=== PATIENT | male | born 1945 | race Caucasian/White ===

== ENCOUNTER 2017-11-25 22:33 | Emergency (ER) | payer MEDICARE ==
[~2017-11-25] VITALS: Ht 193 cm; Wt 81.6 kg
[~2017-11-25 22:33] MED LIST: AMIODARONE HCL200 MG; AMLODIPINE BESYL5 MG PO; ASPIR-LOW81 MG; ATORVASTATIN CA20 MG PO; BENZONATATE100 MG PO; DICYCLOMINE HCL10 MG; FINASTERIDE5 MG PO; LEVAQUIN500 MG PO; LEVOTHYROXINE112 MCG PO; LISINOPRIL5 MG; MAGNESIUM400 MG; MIRTAZAPINE30 MG; NORCO 5-325 TA1 EACH PO; NOVOLIN 70100 UNITS/; ONDANSETRON HCL4 MG; TAMSULOSIN HCL0.4 MG; VITAMIN D400 UNIT PO; [UNRECOGNIZED DRUG - REMARK]
[2017-11-25] MEDS ORDERED: LIDOCAINE JELLY 2% 10ML URO-JET ONE (23:04)
[2017-11-25] MEDS ORDERED: LIDOCAINE JELLY 2% 10ML URO-JET TOP ONE (23:15)
== END 2017-11-25 23:32 | disposition home or self-care (01) ==
LOC: ER 22:33
DX: R33.9 Retention of urine, unspecified (principal); N40.1 Benign prostatic hyperplasia with lower urinary tract symptoms; I10 Essential (primary) hypertension; E11.9 Type 2 diabetes mellitus without complications; I50.9 Heart failure, unspecified; I73.9 Peripheral vascular disease, unspecified; K91.2 Postsurgical malabsorption, not elsewhere classified
CPT/HCPCS: 99282

== ENCOUNTER 2018-01-23 20:27 | Emergency (ER) | payer MEDICARE ==
[~2018-01-23] VITALS: Ht 193 cm; Wt 81.6 kg
[2018-01-23 21:10] LABS: BASOPHILS % 0.4 % (0.0-1.0); EOSINOPHILS # (AUTO) 0.1 (0.0-0.4); EOSINOPHILS % 1.7 % (0.0-6.0); HEMATOCRIT 34.9 % (38.2-49.6); HEMOGLOBIN 10.7 g/dL (14.0-18.0); LYMPHOCYTES # (AUTO) 0.6 (1.0-3.2); LYMPHOCYTES % 11.4 % (18.0-39.1); MEAN CORPUSCULAR HGB CONC 30.7 g/dL (31-35); MEAN CORPUSCULAR VOLUME 97.8 fL (81-99); MONOCYTES # (AUTO) 0.2 (0.2-0.8); MONOCYTES % 4.3 % (4.4-11.3); NEUTROPHILS # (AUTO) 4.2 (2.1-6.9); PLATELET COUNT 199 x10e3/uL (140-360); RED BLOOD COUNT 3.57 x10e6/uL (4.3-5.7); RED CELL DISTRIBUTION WIDTH 15.3 % (11.7-14.4)
[2018-01-23] MEDS ORDERED: BACITRACIN ZINC 0.9GM TP ONE (21:30)
[2018-01-23 21:34] LABS: ALBUMIN 2.9 g/dL (3.5-5.0); ALBUMIN/GLOBULIN RATIO 0.8 (0.8-2.0); ANION GAP 14.6 mmol/L (8-16); CALCIUM 9.1 mg/dL (8.4-10.2); CREATININE, SERUM 1.38 mg/dL (0.72-1.25); POTASSIUM 4.6 mmol/L (3.5-5.1)
[2018-01-23 21:41] LABS: CREATINE KINASE MB 2.5 ng/mL (0-5.0)
--- NOTE | 2018-01-23 21:48 | Diagnostic Imaging Report ---
EXAM: CHEST SINGLE (PORTABLE), AP 1 view INDICATION: Fall this morning COMPARISON: AP view the chest February 21, 2016 FINDINGS: LINES/TUBES: None LUNGS: Bibasilar atelectasis. PLEURA: Small bilateral pleural effusions. HEART AND MEDIASTINUM: Heart is within normal size limits for technique. Stable median sternotomy wires. BONES AND SOFT TISSUES: Degenerative changes of the bilateral shoulders. IMPRESSION: Small bilateral pleural effusions with adjacent atelectasis. Signed by: Dr. Cheryl Davis M.D. on 01/23/2018 9:45 PM
[2018-01-23] MEDS ORDERED: HYDROCODONE/APAP 7.5MG-325MG 1 EA TAB PO ONE (22:00)
[2018-01-23 23:04] VITALS: BP 139/60
== END 2018-01-23 23:45 | disposition home or self-care (01) ==
LOC: ER 20:27
DX: R06.09 Other forms of dyspnea (principal); J90 Pleural effusion, not elsewhere classified
CPT/HCPCS: 36415; 71045; 80053; 82550; 82553; 83880; 84484; 85025; 93005; 99284

== ENCOUNTER 2018-02-07 06:15 | Inpatient (IN) | payer MEDICARE ==
[~2018-02-07] VITALS: Ht 193 cm; Wt 81.6 kg
[2018-02-07] MEDS ORDERED: IPRATROPIUM BROMIDE 0.02% 2.5 ML NEB NEB STA (06:22)
[2018-02-07] MEDS ORDERED: ALBUTEROL SULF 0.083% NEB SOLN 3 ML NEB NEB STA (06:22)
[2018-02-07] MEDS ORDERED: FAMOTIDINE 20 MG/2 ML VIAL IV ONE (06:30)
[2018-02-07] MEDS ORDERED: NITROGLYCERIN 2% OINT 1 GM PKT TOP ONE (06:30)
[2018-02-07] MEDS ORDERED: SODIUM CHLORIDE FLUSH 10 ML SYR INJ PRN ×2 (06:30→08:15)
[2018-02-07] MEDS ORDERED: FUROSEMIDE INJ 10 MG/ML 4 ML VIAL IV ONE (06:30)
[2018-02-07] MEDS ORDERED: ASPIRIN 81 MG CHEW TAB PO ONE ×2 (06:30→08:15)
[2018-02-07 07:00] LABS: BASOPHILS % 0.1 % (0.0-1.0); EOSINOPHILS % 0.4 % (0.0-6.0); HEMATOCRIT 30.7 % (38.2-49.6); LYMPHOCYTES # (AUTO) 0.6 (1.0-3.2); LYMPHOCYTES % 7.7 % (18.0-39.1); MEAN CORPUSCULAR HEMOGLOBIN 29.2 pg (28-32); MEAN CORPUSCULAR HGB CONC 29.3 g/dL (31-35); MEAN CORPUSCULAR VOLUME 99.7 fL (81-99); MONOCYTES # (AUTO) 0.2 (0.2-0.8); MONOCYTES % 2.4 % (4.4-11.3); NEUTROPHILS # (AUTO) 6.7 (2.1-6.9); NEUTROPHILS % 88.9 % (38.7-80.0); PLATELET COUNT 182 x10e3/uL (140-360); RED BLOOD COUNT 3.08 x10e6/uL (4.3-5.7); RED CELL DISTRIBUTION WIDTH 15.5 % (11.7-14.4)
[2018-02-07 07:19] LABS: ALBUMIN 2.5 g/dL (3.5-5.0); ALBUMIN/GLOBULIN RATIO 0.8 (0.8-2.0); ANION GAP 12.3 mmol/L (8-16); CALCIUM 8.4 mg/dL (8.4-10.2); CREATININE, SERUM 1.55 mg/dL (0.72-1.25); POTASSIUM 5.3 mmol/L (3.5-5.1)
--- NOTE | 2018-02-07 07:19 | Diagnostic Imaging Report ---
PROCEDURE: A single AP view of the chest. COMPARISON: Chest radiograph 01/23/18. INDICATIONS: CHEST PAIN; SOB FINDINGS: Lines/tubes: None. Lungs: Low lung volumes. Interval development of bilateral perihilar and interstitial opacities. Increasing patchy opacities at the lung bases. Pleura: Increasing moderate right and small left pleural effusions. No evidence of pneumothorax. Heart and mediastinum: The cardiomediastinal silhouette is unremarkable. Atherosclerotic aortic calcifications. Bones: No acute bony abnormality. Status post median sternotomy. IMPRESSION: Interval development of moderate pulmonary edema with increasing moderate right and small left pleural effusions. Patchy opacities at the lung bases, likely atelectasis. Superimposed pneumonia is possible in the appropriate clinical setting. Dictated by: LENIN GURROLA M.D. on 02/07/2018 at 7:25 Electronically approved by: LENIN GURROLA M.D. on 02/07/2018 at 7:25
[2018-02-07] MEDS ORDERED: AZITHROMYCIN 500MG/SOD CHL 0.9% 250ML BAG IV SCH (08:15)
[2018-02-07] MEDS ORDERED: D5.45%NS/KCL 20MEQ 1,000 ML IV ONE (08:15)
[2018-02-07] MEDS ORDERED: CEFTRIAXONE SOD 1 GM VIAL IV SCH (08:15)
[2018-02-07] MEDS ORDERED: ALBUTEROL SULF 0.083% NEB SOLN 3 ML NEB NEB SCH (08:15)
[2018-02-07 08:18] LABS: ABG HCO3 34 mmol/L (23-28); ABG PCO2 69 mmHg (41-51); ABG PO2 60 mmHg (80-105)
[2018-02-07] MEDS ORDERED: SODIUM CHLORIDE 0.9% 1000ML 1,000 ML ONE (08:54)
[2018-02-07] MEDS ORDERED: AZITHROMYCIN 500MG/NS 250 ML 250 ML IV SCH (09:00)
[2018-02-07] MEDS ORDERED: SODIUM CHLORIDE 0.9% 1000ML 1,000 ML IV SCH (09:00)
[2018-02-07 09:28] LABS: ABG HCO3 37 mmol/L (23-28); ABG PCO2 74 mmHg (41-51); ABG PO2 52 mmHg (80-105)
--- NOTE | 2018-02-07 10:05 | History and Physical ---
PRIMARY CARE PHYSICIAN: At the [place] CHIEF COMPLAINT: Shortness of breath. HISTORY OF PRESENT ILLNESS: This is a 72-year-old man with a history of peripheral vascular disease and coronary artery disease, as well as severe COPD, on oxygen at home, now developing shortness of breath. Brought to the hospital by his . The patient was found to have illness at the requiring BiPAP support and antibiotics. However, family has decided to withdrawal care honoring the patient's wishes, and want to proceed with Hospice care and make the patient DNR. PAST MEDICAL HISTORY: Urinary tract infection, major depression, peripheral arterial disease, acute colitis, diabetes mellitus, severe COPD, on nasal cannula oxygen at home, chronic atrial fibrillation, hypertension, hyperlipidemia, BPH, hypothyroidism, coronary artery disease, status post coronary artery bypass grafting times 4 in 2002, cigarette use. PAST SURGICAL HISTORY: Coronary artery bypass graft. ALLERGIES: PER ELECTRONIC MEDICAL RECORD. FAMILY HISTORY/SOCIAL HISTORY: Patient is . He has no children of his own. Occasional alcohol. A quarter pack of cigarettes per day. MEDICATIONS: Per electronic medical record. REVIEW OF SYSTEMS: Unobtainable. PHYSICAL EXAMINATION VITAL SIGNS: Have been reviewed. GENERAL: A tired-appearing man resting in bed. HEENT: He has a BiPAP mask in place. Eyes closed. Pupils are 2+. CARDIOVASCULAR: Normal S1 and S2. LUNGS: He has reduced breath sounds throughout. Near absent breath sounds. ABDOMEN: Soft, nontender and nondistended. EXTREMITIES: He has a left BKA well-healed. He has right TMA with ulcer, stage 2 on the heel. SKIN: Dry. PSYCHIATRIC: Unable to assess. NEUROLOGIC: He is not interactive. LABS: Reviewed. MEDICATIONS: Reviewed. ASSESSMENT: This is a 72-year-old man with: 1. Acute respiratory failure. 2. Acute exacerbation of chronic obstructive pulmonary disease. 3. Bilateral pleural effusion and pulmonary edema. 4. Diabetes mellitus. 5. Microcytic anemia, moderate. 6. Hyperkalemia. 7. Acute kidney injury versus chronic kidney disease. 8. Elevated brain natriuretic peptide, likely acute exacerbation of congestive heart failure, type unknown. 9. Prophylaxis: No sequential compression devices due to Hospice status. PLAN 1. has requested no antibiotics. Antibiotics will hence be discontinued at this time. Will discontinue IV fluids. He has pulmonary edema and likely CHF exacerbation. 2. Will stop the BiPAP per the 's wishes, and will put him on nasal cannula oxygen. 3. Will monitor closely. Restart his home medications and consult Hospice services. Possible discharge later today. 4. Code status DNI. Job#: [id number] RI
[2018-02-07 10:35] VITALS: BP 122/63
[2018-02-07] MEDS: ALBUTEROL SULF 0.083% NEB SOLN 3 ML NEB NEB SCH ×2 (11:00→14:47)
[2018-02-07] MEDS ORDERED: IPRATROPIUM BROMIDE 0.02% 2.5 ML NEB NEB SCH ×2 (12:00→13:00)
[2018-02-07] MEDS: HYDROMORPHONE 1MG/1ML INJ IV PRN ×3 (13:35→21:11)
[2018-02-07] MEDS: BENZONATATE 100 MG CAP PO SCH ×2 (15:00→21:10)
[2018-02-07 16:00] VITALS: BP 92/58
[2018-02-07 20:33] VITALS: BP 106/55
[2018-02-07] MEDS ORDERED: ATORVASTATIN 20 MG TAB PO SCH (21:00)
[2018-02-08] MEDS ORDERED: FINASTERIDE 5 MG TAB PO SCH (09:00)
[2018-02-08] MEDS ORDERED: AMLODIPINE BESYLATE 5 MG TAB PO SCH (09:00)
[2018-02-08] MEDS ORDERED: AMIODARONE HCL 200 MG TAB PO SCH (09:00)
[2018-02-08] MEDS ORDERED: ASPIRIN 81 MG CHEW TAB PO SCH (09:00)
[2018-02-08] MEDS ORDERED: LEVOTHYROXINE SODIUM 112 MCG TAB PO SCH (09:00)
--- NOTE | 2018-02-25 15:28 | Discharge Summary ---
PRINCIPAL DIAGNOSES 1. Acute respiratory failure. 2. Acute exacerbation of chronic obstructive pulmonary disease. 3. Bilateral pleural effusion and pulmonary edema. 4. Diabetes mellitus. 5. Microcytic anemia, moderate. 6. Hyperkalemia. 7. Acute kidney injury. 8. Elevated brain natriuretic peptide, likely acute exacerbation of congestive heart failure with type unknown. SECONDARY DIAGNOSIS: Chronic obstructive pulmonary disease. CHIEF COMPLAINT: Shortness of breath. HISTORY OF PRESENT ILLNESS: This is a 72-year-old man with shortness of breath. Please refer to H and P for further details. HOSPITAL COURSE: Patient was found to have acute respiratory failure, acute exacerbation of COPD, bilateral pleural effusion, pulmonary edema, diabetes mellitus, microcytic anemia, moderate. Also had acute kidney injury and elevated BNP possibly CHF. patient in the hospice care. Patient was discharged on hospice care services. DISCHARGE MEDICATIONS: Per electronic medical record. CONDITION ON DISCHARGE: Poor to fair. ELLI PEREZ MD Job#: [id number] MAYE
--- OUTSIDE RECORDS SUMMARY | 2018-03-02 07:07 | XMS REPORT | Continuity of Care Document ---
Author Author [facility] Organization [facility] Address [address] [place] [address] Phone Unavailable Care Team Providers Care Snow Shoveler Name Role Phone VAUGHN WANG MD PCP Insurance Providers Guarantor Marcelo Grady Address [facility] [place] [address] Email NONE Payer Medicare A & B Policy Number [id number] Subscriber's Name Marcelo Grady Relationship 18 Self / Same As Patient Group Name RETIRED Effective Date 03 Advance Directives Directive Response Recorded Date/Time Does the patient have an advance directive? No 02/21/16 5:55pm If yes, is advance directive on file with [facility]? No 11/15/11 11:47am If not on file with [facility] will patient provide a copy? No 01/23/18 10:01pm Do you have a Directive to Physician? No 01/23/18 10:01pm Do you have a Medical Power of Talend Etl Developer? No 01/23/18 10:01pm Do you have an out of hospital Do Not Resuscitate Order? No 01/23/18 10:01pm Do you have any special needs we should be aware of? No 01/23/18 10:01pm Do you have a support person here with you today? No 01/23/18 10:01pm Did patient receive Notice of Privacy Practices? Yes 01/23/18 10:01pm Did patient receive patient rights and responsibilities? Yes 01/23/18 10:01pm Problems Medical Problem Onset Date Status Diabetes 02/21/2016 Acute Dizziness 02/21/2016 Acute UTI (urinary tract infection) 02/21/2016 Acute Vomiting 02/21/2016 Acute Weakness 02/21/2016 Acute Medications Current Home Medications Medication Dose Units Route Directions Days Qty Instructions Start Date Amiodarone Hcl 200 Mg Tablet Amlodipine Besylate 5 Mg Tablet 5 Mg Oral Daily 30 Tab Aspirin (Aspir-Low) 81 Mg Tablet. Atorvastatin Calcium 20 Mg Tablet 20 Mg Oral Today At 9:00PM Benzonatate 100 Mg Capsule 100 Mg Oral Three Times A Day Cholecalciferol (Vitamin D3) (Vitamin D) 400 Unit Capsule 800 Units Oral Daily 30 Cap Dicyclomine Hcl 10 Mg Capsule Every 12 Hours Finasteride 5 Mg Tablet 10 Mg Oral Daily 30 Tab Hydrocodone Bit/Acetaminophen (Pevely 5-325 Tablet) 1 Each Tablet 2 Each Oral As Needed as needed for Pain Insulin Human Isophan/Regular (Novolin 70-30 100 Unit/Ml Vial) 100 Units/Ml Ml Levofloxacin (Levaquin) 500 Mg Tablet 500 Mg Oral Daily 7 Tab 02/23 Levothyroxine Sodium 112 Mcg Tablet 125 Mcg Oral Daily 30 Tab Lisinopril 5 Mg Tablet Magnesium Oxide (Magnesium) 400 Mg Capsule 420 Mirtazapine 30 Mg Tablet Ondansetron Hcl 4 Mg Tablet Tamsulosin Hcl 0.4 Mg Cap.er.24h Unk Meds 11/02/13 Social History Social History Problem Response Recorded Date/Time Onset Date Status Hx Psychiatric Problems Yes 02/21/2016 5:55pm Not Applicable Not Applicable Hx Eating Disorder No 02/21/2016 5:55pm Not Applicable Not Applicable Hx Substance Use Disorder No 02/21/2016 5:55pm Not Applicable Not Applicable Hx Depression Yes 02/21/2016 5:55pm Not Applicable Not Applicable Hx Alcohol Use No 02/21/2016 5:55pm Not Applicable Not Applicable Hx Substance Use Treatment No 02/21/2016 5:55pm Not Applicable Not Applicable Hx Physical Abuse No 02/21/2016 5:55pm Not Applicable Not Applicable Smoking Status Start Date Stop Date Former smoker Hospital Discharge Instructions No hospital discharge instruction information available. Plan of Care Discharge Date 01/23/18 11:45pm Disposition HOME, SELF-CARE Condition at Discharge Stable Instructions/Education Provided Pleural Effusion Prescriptions See Medication Section Additional Instructions/Education FOLLOW UP WITH YOUR DOCTOR IN TWO DAYS. RETURN TO ED IF SYMPTOMS WORSEN. Functional Status No functional status information available. Allergies, Adverse Reactions, Alerts Allergen Type Severity Reaction Status Last Updated Morphine Allergy Intermediate BREAK OUT/HALLUCINATIONS Active 11/02/13 Immunizations No immunization information available. Vital Signs Acute Vital Signs Vital Response Date/Time Pulse Pulse Rate (adult) 66 bpm (60 - 90) 01/23/2018 11:04pm Respiratory Rate 19 bpm (12 - 24) 01/23/2018 11:04pm Blood Pressure 139/60 mm Hg 01/23/2018 11:04pm Height 6 ft 4 in 01/23/2018 8:41pm Weight 180 lb 01/23/2018 8:41pm Body Mass Index 21.9 kg/m^2 01/23/2018 8:41pm Results Laboratory Results Test Name Result Units Flags Reference Collection Date/Time Result Date/ Time Comments White Blood Count 5.17 x10e3/uL 4.8-10.8 01/23/2018 8:47pm 01/23/2018 9 :15pm Red Blood Count 3.57 x10e6/uL L 4.3-5.7 01/23/2018 8:47pm 01/23/2018 9: 15pm Hemoglobin 10.7 g/dL L 14.0-18.0 01/23/2018 8:47pm 01/23/2018 9:15pm Hematocrit 34.9 % L 38.2-49.6 01/23/2018 8:47pm 01/23/2018 9:15pm Mean Corpuscular Volume 97.8 fL 81-99 01/23/2018 8:47pm 01/23/2018 9: 15pm Mean Corpuscular Hemoglobin 30.0 pg 28-32 01/23/2018 8:47pm 01/23/2018 9:15pm Mean Corpuscular Hemoglobin Concent 30.7 g/dL L 31-35 01/23/2018 8:47pm 01/23/2018 9:15pm Red Cell Distribution Width 15.3 % H 11.7-14.4 01/23/2018 8:47pm 2017 9:15pm Platelet Count 199 x10e3/uL 140-360 01/23/2018 8:47pm 01/23/2018 9: 15pm Neutrophils (%) (Auto) 82.0 % H 38.7-80.0 01/23/2018 8:47pm 01/23/2018 9 :15pm Lymphocytes (%) (Auto) 11.4 % L 18.0-39.1 01/23/2018 8:47pm 01/23/2018 9 :15pm Monocytes (%) (Auto) 4.3 % L 4.4-11.3 01/23/2018 8:47pm 01/23/2018 9: 15pm Eosinophils (%) (Auto) 1.7 % 0.0-6.0 01/23/2018 8:47pm 01/23/2018 9: 15pm Basophils (%) (Auto) 0.4 % 0.0-1.0 01/23/2018 8:47pm 01/23/2018 9:15pm IM GRANULOCYTES % 0.2 % 0.0-1.0 01/23/2018 8:47pm 01/23/2018 9:15pm Neutrophils # (Auto) 4.2 2.1-6.9 01/23/2018 8:47pm 01/23/2018 9:15pm Lymphocytes # (Auto) 0.6 L 1.0-3.2 01/23/2018 8:47pm 01/23/2018 9: 15pm Monocytes # (Auto) 0.2 0.2-0.8 01/23/2018 8:47pm 01/23/2018 9:15pm Eosinophils # (Auto) 0.1 0.0-0.4 01/23/2018 8:47pm 01/23/2018 9:15pm Basophils # (Auto) 0.0 0.0-0.1 01/23/2018 8:47pm 01/23/2018 9:15pm Absolute Immature Granulocyte (auto 0.01 x10e3/uL 0-0.1 01/23/2018 8: 47pm 01/23/2018 9:15pm Sodium Level 141 mmol/L 136-145 01/23/2018 8:47pm 01/23/2018 9:52pm Potassium Level 4.6 mmol/L 3.5-5.1 01/23/2018 8:47pm 01/23/2018 9:52pm Chloride Level 102 mmol/L 98-107 01/23/2018 8:47pm 01/23/2018 9:52pm Carbon Dioxide Level 29 mmol/L 22-29 01/23/2018 8:47pm 01/23/2018 9: 52pm Anion Gap 14.6 mmol/L 8-16 01/23/2018 8:47pm 01/23/2018 9:52pm Blood Urea Nitrogen 28 mg/dL H 7-01/23/2018 8:47pm 01/23/2018 9:52pm Creatinine 1.38 mg/dL H 0.72-1.25 01/23/2018 8:47pm 01/23/2018 9:52pm BUN/Creatinine Ratio 20 6-01/23/2018 8:47pm 01/23/2018 9:52pm Estimat Glomerular Filtration Rate 51 ML/MIN L 60- 01/23/2018 8:47pm 9:52pm Ranges were taken from the National Kidney Disease Education Program and the National Kid[employer] Foundation literature. Reference ranges: 60 or greater: Normal 16-59 (for 3 consecutive months): Chronic kidney disease 15 or less: Kidney failure Glucose Level 162 mg/dL H 74-118 01/23/2018 8:47pm 01/23/2018 9:52pm Calcium Level 9.1 mg/dL 8.4-10.2 01/23/2018 8:47pm 01/23/2018 9:52pm Total Bilirubin 0.9 mg/dL 0.2-1.2 01/23/2018 8:47pm 01/23/2018 9:52pm Aspartate Amino Transf (AST/SGOT) 9 IU/L 5-34 01/23/2018 8:47pm 2017 9:52pm Alanine Aminotransferase (ALT/SGPT) 7 IU/L 0-55 01/23/2018 8:47pm 01/23 9:52pm Total Protein 6.7 g/dL 6.5-8.1 01/23/2018 8:47pm 01/23/2018 9:52pm Albumin 2.9 g/dL L 3.5-5.0 01/23/2018 8:47pm 01/23/2018 9:52pm Globulin 3.8 g/dL H 2.3-3.5 01/23/2018 8:47pm 01/23/2018 9:52pm Albumin/Globulin Ratio 0.8 0.8-2.0 01/23/2018 8:47pm 01/23/2018 9: 52pm Alkaline Phosphatase 86 IU/L 40-150 01/23/2018 8:47pm 01/23/2018 9: 52pm B-Type Natriuretic Peptide 548.1 pg/mL H 0-100 01/23/2018 8:47pm 2017 9:52pm Creatine Kinase 35 IU/L 30-200 01/23/2018 8:47pm 01/23/2018 9:52pm Creatine Kinase MB 2.50 ng/mL 0-5.0 01/23/2018 8:47pm 01/23/2018 9: 52pm Troponin I 0.043 ng/mL 0-0.300 01/23/2018 8:47pm 01/23/2018 9:52pm Procedures No procedure information available. Encounters Encounter Location Arrival/Admit Date Discharge/Depart Date Attending Provider Departed Emergency Room [facility] 01/23/18 8:27pm 11:45pm ALPHONSE CRUZ MD Departed Emergency Room [facility] Patients [facility] 11/25/17 10:33pm 11/25 11:32pm ALPHONSE CRUZ MD
--- OUTSIDE RECORDS SUMMARY | 2018-03-02 07:07 | XMS REPORT ---
[facility] Address Unknown Phone Unavailable Care Team Providers Care Pompom Maker Name Role Phone DONATO LEVY Unavailable Unavailable ALPHONSE CRUZ Unavailable Unavailable Problems This patient has no known problems. Allergies, Adverse Reactions, Alerts This patient has no known allergies or adverse reactions. Medications This patient has no known medications. Results Test Description Test Time Test Comments Text Results Atomic Results Result Comments CHEST SINGLE (PORTABLE) 2018-02-07 07:25:00 [place] [address] Patient Name: JANE CARRION MR #: [id number] : 1945 Age/Sex : 72/M Req #: [id number] Adm Physician: Ordered by: DONATO LEVY MD Report #: [id number] Location: ER Room/Bed: Procedure: [id number] DX/CHEST SINGLE (PORTABLE) Exam Date: 02/07/18 Exam Time: 0648 REPORT STATUS: Signed PROCEDURE: A single AP view of the chest. COMPARISON: Chest radiograph . INDICATIONS: CHEST PAIN; SOB FINDINGS: Lines/tubes: None. Lungs: Low lung volumes. Interval development of bilateral perihilar and interstitial opacities. Increasing patchy opacities at the lung bases. Pleura: Increasing moderate right and small left pleural effusions. No evidence of pneumothorax. Heart and mediastinum: The cardiomediastinal silhouette is unremarkable. Atherosclerotic aortic calcifications. Bones: No acute bony abnormality. Status post median sternotomy. IMPRESSION: Interval development of moderate pulmonary edema with increasing moderate right and small left pleural effusions. Patchy opacities at the lung bases, likely atelectasis. Superimposed pneumonia is possible in the appropriate clinical setting. Dictated by: LENIN GURROLA M.D. on 02/07/2018 at 7:25 Electronically approved by: LENIN GURROLA M.D. on 02/07/2018 at 7:25 Dictated By: LENIN GURROLA MD 4 Transcribed By: BAO on 02/07/18724 COPY TO: DONATO LEVY MD CHEST SINGLE (PORTABLE) 2018-01-23 21:42:00 [place] [address] Patient Name: JANE CARRION MR #: [id number] : 1945 Age/Sex : 72/M Req #: [id number] Adm Physician: Ordered by: ALPHONSE CRUZ MD Report #: [id number] Location: ER Room/Bed: ____ Procedure: [id number] DX/CHEST SINGLE (PORTABLE) Exam Date: 01/23/18 Exam Time: 2119 REPORT STATUS: Signed EXAM: CHEST SINGLE (PORTABLE), AP 1 view INDICATION: Fall this morning COMPARISON: AP view the chest February 21, 2016 FINDINGS: LINES/TUBES: None LUNGS: Bibasilar atelectasis. PLEURA: Small bilateral pleural effusions. HEART AND MEDIASTINUM: Heart is within normal size limits for technique. Stable median sternotomy wires. BONES AND SOFT TISSUES: Degenerative changes of the bilateral shoulders. IMPRESSION: Small bilateral pleural effusions with adjacent atelectasis. Signed by: Dr. Mahendra Davis M.D. on 01/23/2018 9:45 PM Dictated By: MAHENDRA DAVIS MD 44 Transcribed By: AKIL on 01/23/182144 COPY TO: ALPHONSE CRUZ MD
== END 2018-02-07 22:47 | disposition hospice, inpatient (51) | DRG 189 ==
LOC: ER 06:15 → ERHOLD 08:09 → MED/SURG2 09:59
PROVIDERS: ADMIT Internal Medicine; ATTEND Internal Medicine
DX: J96.00 Acute respiratory failure, unspecified whether with hypoxia or hypercapnia (principal); J44.1 Chronic obstructive pulmonary disease with (acute) exacerbation; N17.9 Acute kidney failure, unspecified; L97.428 Non-pressure chronic ulcer of left heel and midfoot with other specified severity; Z51.5 Encounter for palliative care; I73.9 Peripheral vascular disease, unspecified; I11.0 Hypertensive heart disease with heart failure; I25.10 Atherosclerotic heart disease of native coronary artery without angina pectoris; Z99.81 Dependence on supplemental oxygen; F32.9 Major depressive disorder, single episode, unspecified; E11.9 Type 2 diabetes mellitus without complications; I48.2 Chronic atrial fibrillation; Z79.01 Long term (current) use of anticoagulants; Z95.1 Presence of aortocoronary bypass graft; E78.5 Hyperlipidemia, unspecified; E03.9 Hypothyroidism, unspecified; Z66 Do not resuscitate; I50.9 Heart failure, unspecified; E87.5 Hyperkalemia; Z89.512 Acquired absence of left leg below knee; Z89.431 Acquired absence of right foot; D63.8 Anemia in other chronic diseases classified elsewhere; Z79.4 Long term (current) use of insulin; F17.210 Nicotine dependence, cigarettes, uncomplicated; E11.621 Type 2 diabetes mellitus with foot ulcer
CPT/HCPCS: 36415; 36600; 71045; 80053; 82550; 82553; 82805; 83880; 84484; 85025; 87040; 93005; 94640; 94660; 99284; J0456; J0696; J1170; J1940; J7030